=== PATIENT | male | born 1940 | race Caucasian/White ===

== ENCOUNTER 2016-10-06 15:49 | Emergency (ER) | payer MEDICARE, MEDICAID ==
[~2016-10-06] VITALS: Ht 160 cm; Wt 71.2 kg
[~2016-10-06 15:49] MED LIST: ALBUTEROL2.5 MG/3 M INH; COZAAR50 MG PO; CRESTOR10 MG PO; FLOMAX0.4 MG PO; HYDROCHLOROTHIA25 MG PO; PERCOCET 7.5-31 EACH PO; POTASSIUM CHLO10 MEQ PO; PRILOSEC20 MG PO; PROAIR HFA8.5 GM INH
[2016-10-06] MEDS ORDERED: PERCOCET 5-3251 EACH PO (20:34)
[2016-10-06] MEDS ORDERED: MELOXICAM15 MG PO (20:34)
== END 2016-10-06 20:54 | disposition home or self-care (01) ==
LOC: ED 15:49
DX: I10 Essential (primary) hypertension (principal); Z90.49 Acquired absence of other specified parts of digestive tract; Z96.651 Presence of right artificial knee joint; Z96.641 Presence of right artificial hip joint; Z79.899 Other long term (current) drug therapy
CPT/HCPCS: 96372; 99283; J1885

== ENCOUNTER 2018-11-27 12:10 | Day surgery (SDC) | payer MEDICARE, MEDICAID ==
[~2018-11-27] VITALS: Ht 160 cm; Wt 71.7 kg
--- NOTE | ~2018-11-27 | OR ---
[facility] [address] [place], [place] [address] Draft DATE OF OPERATION: 11/27/2018 SURGEON: Charles Donis MD PREOPERATIVE DIAGNOSIS: History of polyps of colon (tubular adenomas in 2016). POSTOPERATIVE DIAGNOSES: 1. Sigmoid diverticulosis. 2. Hyperplastic mucosal area of proximal ascending colon (biopsied). PROCEDURE PERFORMED: Total colonoscopy to cecum with biopsy of hyperplastic area of proximal ascending colon. ANESTHESIA: Intravenous sedation, fentanyl 100 mcg, and Versed 3 mg. INDICATION: This 78-year-old white man is a patient of Dr. Alvarado and known to me from the past. In 2016, he underwent colonoscopy showing two tubular adenomas, one at the hepatic flexure, and one in the rectosigmoid. He is having no colon symptoms at this time. He was admitted to undergo colonoscopy understanding the risks of bleeding, infection, and perforation. Additionally noted is a new left-sided inguinal hernia. Consideration for repair has been made as well. FINDINGS: The prep was good. Complete colonoscopy was undertaken of the cecum without question. Area of prior tattoo dye was noted in the area of the hepatic flexure. There was a hyperplastic area of mucosa in the proximal ascending colon, which was not certain for adenomatous change. Narrow band imaging was not discriminative. Biopsies were obtained of that region. There were diverticula of the sigmoid and left colon. There were no other findings of concern. DESCRIPTION OF PROCEDURE: The patient was brought to the endoscopy suite and placed in lateral decubitus position given intravenous sedation to the point of slurred speech and nystagmus with full cardiopulmonary monitoring. Digital rectal examination was normal. PATIENT NAME: ADAM HOWELL OPERATIVE REPORT DATE OF : 36 REPORT #: [id number] PHYSICIAN: CHARLES DONIS MD PCP: JOSE RAMON ALVARADO MD REPORT IS CONFIDENTIAL AND NOT TO BE RELEASED WITHOUT AUTHORIZATION [facility] [address] [place], [place] [address] Draft An Olympus video colonoscope was passed in the rectum and manipulated throughout the colon ultimately identifying the hepatic flexure based on landmarks in the distal ascending colon, splenic flexure, some tattoo dye from the past. Scope was advanced further to the cecum and an area of what appeared to be hyperplastic mucosa was noted. It was not clearly an adenoma itself. Narrow band imaging was unrevealing where highly was a distinguished adenomatous versus nonadenomatous tissue. On that basis, multiple biopsies of the area were taken. Scope was fully advanced to the cecum, which was only several centimeters beyond that area. Ileocecal valve and appendiceal orifice were normal. Scope was withdrawn and the area biopsied was identified and further withdrawal showed no sign of abnormality in the remaining colon other than numerous diverticula of the sigmoid and left colon. Retroflexed view was normal as well. Scope was removed. The patient was taken to recovery room in good condition. CONCLUDING DIAGNOSES: 1. Hyperplastic mucosa of proximal ascending colon (biopsied for identification). 2. Diverticulosis. PLAN: Repeat colonoscopy in 5 years if clinically appropriate given history of polyps himself. MD MILTON Daniels/BABITA /[id number] cc: Dr. Alvarado Copies: ~ PATIENT NAME: ADAM HOWELLPH OPERATIVE REPORT DATE OF : 36 REPORT #: [id number] PHYSICIAN: CHARLES DONIS MD PCP: JOSE RAMON ALVARADO MD REPORT IS CONFIDENTIAL AND NOT TO BE RELEASED WITHOUT AUTHORIZATION
[~2018-11-27 12:10] MED LIST changes: +MELOXICAM15 MG PO; +PERCOCET 5-3251 EACH PO; +PREDNISONE20 MG PO; +PROVENTIL HFA6.7 GM INH
--- NOTE | 2018-11-27 13:34 | NUR ---
11/27/18 1334 Aliya Perez 1328- PT ARRIVES TO PACU AROUSABLE TO VOICE. PT FALLS TO SLEEP WHEN NOT BEING TALKED TO. RESP EASY AND UNLABORED. OXYGEN SAT HIGH 90'S TO 100% ON 2L VIA NC. 1330- PT NEEDS AROUSED TO TAKE DEEP BREATHS. PT IS ABLE TO DO THIS. 1333- PT PASSING LARGE AMOUNTS OF FLATUS.
--- NOTE | 2018-11-28 15:08 | PATH ---
[facility] [address] [place], [place] [address] Signed SPECIMEN(S): A PROXIMAL COLON SPECIMEN SOURCE: A. PROXIMAL COLON CLINICAL HISTORY: Preop: Screening, history of polyp. Postop: Diverticula, hyperplastic lesion right colon. MICROSCOPIC DESCRIPTION: Histologic sections of all submitted blocks are examined by light microscopy. These findings, together with the gross examination, support the pathologic diagnosis. FINAL PATHOLOGIC DIAGNOSIS: Mucosa, proximal colon, biopsy: - Serrated adenoma with focal mild adenomatous change. LJA:cml:C2NR GROSS DESCRIPTION: The specimen, labeled "PD, proximal colon," is received in formalin and consists of three pink-mendoza soft tissue fragment(s) that measure 0.2-0.4 cm in greatest dimension. The specimen is entirely submitted in cassette (A1). JS (under the direct supervision of a pathologist) The Gross Description was prepared using a voice recognition system. The report was reviewed for accuracy; however, sound-alike word errors, addition and/or deletions may occur. If there is any question about this report, please contact Client Services. PERFORMING LABORATORY: The technical component was performed by [facility], [address] [place] [id number] (Adult Probation Officer: Joanie Zamarripa MD; CLIA# [id number]). [facility], [address] [address] (Adult Probation Officer: Frank Lacey MD; CLIA# [id number]). Diagnostician: Frank Lacey MD Pathologist Electronically Signed 11/28/2018 PATIENT NAME: ADAM HOWELL PATHOLOGY DATE OF : 36 REPORT #: [id number] PHYSICIAN: [facility] PCP: JOSE RAMON SHEPHERD MD REPORT IS CONFIDENTIAL AND NOT TO BE RELEASED WITHOUT AUTHORIZATION [address] [place], [place] [address] Signed Copies: ~ PATIENT NAME: ADAM HOWELL PATHOLOGY DATE OF : 36 REPORT #: [id number] PHYSICIAN: [facility] PCP: JOSE RAMON SHEPHERD MD REPORT IS CONFIDENTIAL AND NOT TO BE RELEASED WITHOUT AUTHORIZATION
== END 2018-11-27 14:25 | disposition home or self-care (01) ==
LOC: DS 12:10 → OPS 12:10 → DS 13:00 → OPS 13:00
PROVIDERS: Surgery
PROC: 0DBK8ZX Excision of Ascending Colon, Via Natural or Artificial Opening Endoscopic, Diagnostic (ICD-10-PCS; principal; 2018-11-27 13:00)
DX: Z12.11 Encounter for screening for malignant neoplasm of colon (principal); D12.2 Benign neoplasm of ascending colon; K57.30 Diverticulosis of large intestine without perforation or abscess without bleeding; J45.909 Unspecified asthma, uncomplicated; I10 Essential (primary) hypertension; R41.3 Other amnesia; Z86.010 Personal history of colon polyps; Z88.8 Allergy status to other drugs, medicaments and biological substances; Z87.891 Personal history of nicotine dependence
CPT/HCPCS: 99153; G0500; J0690; J2250; J3010; J7120

== ENCOUNTER 2021-10-12 20:42 | Emergency (ER) | payer MEDICARE, MEDICAID ==
[~2021-10-12] VITALS: Ht 160 cm; Wt 65.8 kg
--- NOTE | ~2021-10-12 | EKG ---
[facility] [address] [facility] [place], [place] [address] Draft EK completed, results pending confirmation PATIENT NAME: ADAM HOWELL Electrocardiogram DATE OF : 36 PHYSICIAN: PRELIMINARY REPORT #: [id number] REPORT IS CONFIDENTIAL AND NOT TO BE RELEASED WITHOUT AUTHORIZATION
[~2021-10-12 20:42] MED LIST changes: +ADVAIR 100-501 EACH INH; +ASPIR-LOW81 MG PO; +IBUPROFEN600 MG PO; +OXYCODON-ACETA1 EAC2 PO; +TAMSULOSIN HCL0.4 MG PO; +TYLENOL EXTRA500 MG PO
[2021-10-13] MEDS ORDERED: BRILINTA90 MG PO (02:42)
== END 2021-10-13 00:13 | disposition short-term general hospital (02) ==
LOC: ED 20:42
DX: I21.4 Non-ST elevation (NSTEMI) myocardial infarction (principal); I10 Essential (primary) hypertension; Z88.8 Allergy status to other drugs, medicaments and biological substances; Z95.5 Presence of coronary angioplasty implant and graft; Z96.641 Presence of right artificial hip joint; Z96.651 Presence of right artificial knee joint; Z79.82 Long term (current) use of aspirin; Z79.899 Other long term (current) drug therapy; Z20.822 Contact with and (suspected) exposure to COVID-19
CPT/HCPCS: 36415; 71045; 80053; 83735; 83880; 84484; 85025; 85379; 85610; 87502; 96374; 96375; 99285-25; A9270; J1644; J2270; U0003